=== PATIENT | female | born 2000 | race Hispanic/Latino ===

== ENCOUNTER 2020-08-09 08:18 | Observation (INO) | payer BC ==
[~2020-08-09] VITALS: Ht 154.9 cm; Wt 126.3 kg
[2020-08-09 09:16] LABS: CLARITY,URINE SL CLOUDY (CLEAR); COLOR,URINE YELLOW (YELLOW)
[2020-08-09 09:17] LABS: BILIRUBIN,URINE NEGATIVE (NEGATIVE); KETONES,URINE 1+ (NEGATIVE); LEUKOCYTE ESTERASE ,URINE NEGATIVE (NEGATIVE); NITRITE,URINE NEGATIVE (NEGATIVE); PROTEIN,URINE DIPSTICK NEGATIVE (NEGATIVE); URINE UROBILINOGEN 0.2 mg/dL (0.2 - 1)
[2020-08-09 09:18] LABS: BACTERIA,URINE RARE /HPF; EPITHELIAL CELLS,URINE FEW /LPF; PREGNANCY TEST, URINE NEGATIVE (NEGATIVE)
[2020-08-09] MEDS ORDERED: ACETAMINOPHEN 325 MG TAB PO ONE (09:45)
--- NOTE | 2020-08-09 09:52 | Emergency Department Note ---
History of Present Illnes History of Present Illness Chief Complaint: Abdominal Complaints History of Present Illness This is a 20 year old female . Chief Complaint Comment Pt reports suprapubic pain that started last night. Denies any dysuria. Pt states pain happens once a month. Pt states she usually gets fever and blood clots with pain every month then her cycle starts. Denies any blood clots this time. Reports chills. Historian: Patient Arrival Mode: Car Onset quality: gradual Timing of current episode: intermittent Progression: unchanged Chronicity: new Past Medical/Family History Physician Review I have reviewed the patient's past medical and family history. Any updates have been documented here. Past Medical History Recent Fever: No Clinical Suspicion of Infectio: No New/Unexplained Change in Ment: No Review of Systems Review of Systems Constitutional: Reports no symptoms EENTM: Reports no symptoms Cardiovascular: Reports no symptoms Respiratory: Reports no symptoms Gastrointestinal: Reports as per HPI, Reports abdominal pain Genitourinary: Reports no symptoms Musculoskeletal: Reports no symptoms Integumentary: Reports no symptoms Neurological: Reports no symptoms Psychological: Reports no symptoms Endocrine: Reports no symptoms Hematological/Lymphatic: Reports no symptoms Physical Exam Related Data Allergies: Coded Allergies: No Known Allergies (Unverified , 08/09/20) Triage Vital Signs Vital Signs Date Time Temp Pulse Resp B/P (MAP) Pulse Ox O2 Delivery O2 Flow Rate FiO2 08/09/20 08:35 102.7 123 18 116/78 100 Room Air Vital signs reviewed: Yes Physical Exam CONSTITUTIONAL Constitutional: Present well-developed, Present well-nourished HENT HENT: Present normocephalic, Present atraumatic, Present oropharynx clear/moist, Present nose normal HENT L/R: Present left ext ear normal, Present right ext ear normal EYES Eyes: Reports PERRL, Reports conjunctivae normal NECK Neck: Present ROM normal PULMONARY Pulmonary: Present effort normal, Present breath sounds normal CARDIOVASCULAR Cardiovascular: Present regular rhythm, Present heart sounds normal, Present capillary refill normal, Present normal rate GASTROINTESTINAL Abdominal: Present soft, Present nontender, Present bowel sounds normal GENITOURINARY Genitourinary: Present exam deferred, Present other (bilateral adnexal tenderness, refused pelvic) SKIN Skin: Present warm, Present dry MUSCULOSKELETAL Musculoskeletal: Present ROM normal NEUROLOGICAL Neurological: Present alert, Present oriented x 3, Present no gross motor or sensory deficits PSYCHOLOGICAL Psychological: Present mood/affect normal, Present judgement normal Results Laboratory Laboratory Laboratory Tests Test 08/09/20 08:41 Urine Color Yellow (YELLOW) Urine Clarity Sl cloudy (CLEAR) Urine pH 5.5 (5 - 7) Urine Specific Mcleod >=1.030 (1.010-1.025) Urine Protein Negative (NEGATIVE) Urine Glucose (UA) Negative (NEGATIVE) Urine Ketones 1+ (NEGATIVE) Urine Blood Small (NEGATIVE) Urine Nitrite Negative (NEGATIVE) Urine Bilirubin Negative (NEGATIVE) Urine Urobilinogen 0.2 mg/dL (0.2 - 1) Urine Leukocyte Esterase Negative (NEGATIVE) Urine RBC 6-10 /HPF (0-5) Urine WBC 6-10 /HPF (0-5) Urine Epithelial Cells Few /LPF (NONE) Urine Bacteria Rare /HPF (NONE) Urine Test Negative (NEGATIVE) Assessment & Plan Medical Decision Making MDM Differential diagnosis includes: pancreatitis, AAA, cholecystitis, choledocholithiasis, cholangitis, mesenteric ischemia, small bowel obstruction, diverticulitis, colitis, appendicitis, or pelvic etiology such as ovarian tors ion, TOA, or ectopic . Abdominal exam without peritoneal signs. No evidence of acute abdomen at this time. Well appearing. Low suspicion for acute hepatobiliary disease (includng acute cholecystitis), acute pancreatitis, PUD (including perforation), acute infectious processes (pneumonia, hepatitis, pyelonephritis), acute appendicitis, vascular catastrophe, bowel obstruction or viscus perforation. Presentation not consistent with other acute, emergent causes of abdominal pain at this time. Plan: labs, UA, pelvic ultrasound, pain control, serial reassessment Reassessment Reassessment Patients symptoms not typical for emergent causes of abdominal pain such as, but not limited to, appendicitis, abdominal aortic aneurysm, surgical biliary disease, pancreatitis, SBO, mesenteric ischemia, serious intra-abdominal bacterial illness. Presentation also not typical of gynecologic emergencies such as TOA, Ovarian Torsion, PID. Not Ectopic. Doubt atypical ACS. Pt tolerating PO. Disposition: Patient will be discharged with strict return precautions and follow up with primary MD within 12-24 hours for further evaluation. Patient understands that this still may have an early presentation of an emergent medical condition such as appendicitis that will require a recheck. Depart Disposition: HOME, SELF-CARE Last Vital Signs Date Time Temp Pulse Resp B/P (MAP) Pulse Ox O2 Delivery O2 Flow Rate FiO2 08/09/20 08:35 102.7 123 18 116/78 100 Room Air Medications in the ED Acetaminophen 975 mg ONCE ONCE PO Last administered on 08/09/20at 09:41; Admin Dose 975 MG; Start 08/09/20 at 09:45; Stop 08/09/20 at 09:46 LEONEL RICHARDSON DO Aug 09, 2020 09:52
[2020-08-09 10:33] LABS: BASOPHILS % 0.2 % (0.0-1.0); EOSINOPHILS # (AUTO) 0.1 (0.0-0.4); EOSINOPHILS % 0.3 % (0.0-6.0); HEMATOCRIT 37.9 % (34.2-44.1); HEMOGLOBIN 11.2 g/dL (12.0-16.0); LYMPHOCYTES # (AUTO) 1.2 (1.0-3.2); LYMPHOCYTES % 5.2 % (18.0-39.1); MEAN CORPUSCULAR HEMOGLOBIN 25.1 pg (28-32); MEAN CORPUSCULAR HGB CONC 29.6 g/dL (31-35); MONOCYTES # (AUTO) 0.6 (0.2-0.8); MONOCYTES % 2.7 % (4.4-11.3); NEUTROPHILS # (AUTO) 20.7 (2.1-6.9); PLATELET COUNT 455 x10e3/uL (140-360); RED BLOOD COUNT 4.46 x10e6/uL (3.6-5.1); RED CELL DISTRIBUTION WIDTH 13.5 % (11.7-14.4)
[2020-08-09 10:52] LABS: ALANINE AMINOTRANSFERASE 30 IU/L (0-55); ALBUMIN 3.5 g/dL (3.5-5.0); ALBUMIN/GLOBULIN RATIO 0.8 (0.8-2.0); ALKALINE PHOSPHATASE 84 IU/L (40-150); ANION GAP 15.1 mmol/L (8-16); BLOOD UREA NITROGEN 11 mg/dL (7-26); BUN/CREATININE RATIO 13 (6-25); CALCIUM 9.1 mg/dL (8.4-10.2); CARBON DIOXIDE 24 mmol/L (22-29); CHLORIDE 105 mmol/L (98-107); CREATININE, SERUM 0.82 mg/dL (0.57-1.11); EST GLOMERULAR FILTRATION RATE > 60 ML/MIN (60-); GLUCOSE 173 mg/dL (74-118); POTASSIUM 4.1 mmol/L (3.5-5.1); SODIUM 140 mmol/L (136-145)
--- NOTE | 2020-08-09 12:13 | Diagnostic Imaging Report ---
HISTORY : Pelvic pain COMPARISON : None TECHNIQUE: Ultrasound examination of the pelvis was performed transabdominally and transvaginally including spectral and color Doppler evaluation. FINDINGS: The uterus is retroverted and homogeneous in echotexture. The uterus measures 7.3 x 3.6 x 4.1 cm. The endometrial stripe appears unremarkable and measures 0.4 cm in maximum thickness. The right ovary measures 3.6 x 1.9 x 3.2 cm. The left ovary measures 3.2 x 3.2 x 2.4 cm. Arterial and venous flow identified at the time of this examination. Small and ability and cyst is noted. Bilateral ovarian follicles are visualized. There is a small amount of fluid in the cul-de-sac. IMPRESSION : 1. No evidence of ovarian torsion at the time of this examination. Bilateral ovarian follicles are visualized. 2. Unremarkable ultrasound of the uterus. 3. Small amount of free fluid in the pelvis, within physiologic limits. Signed by: Tanner Bass MD on 08/09/2020 12:10 PM
[2020-08-09] MEDS ORDERED: SODIUM CHLORIDE 0.9% 50ML 50 ML ONE (13:36)
[2020-08-09] MEDS ORDERED: IOPAMIDOL 370 MG/ML 200 ML INFUS..BTL INJ ONE (13:36)
--- NOTE | 2020-08-09 14:25 | Diagnostic Imaging Report ---
CT of the abdomen and pelvis with contrast TECHNIQUE: CT of the abdomen and pelvis WITH intravenous contrast and WITHOUT oral contrast. Dose modulation, iterative reconstruction, and/or weight-based adjustment of the mA/kV was utilized to reduce the radiation dose to as low as reasonably achievable. IV CONTRAST: 100 mL of Isovue-370 ORAL CONTRAST: None RADIATION DOSE: Total DLP: 857 mGy*cm COMPLICATIONS: None INDICATION: ^Y ^abd pain ^[id number] ^1340. COMPARISON: None. FINDINGS: LOWER THORAX: Linear atelectasis is noted. HEPATOBILIARY: Liver is diffusely hypoattenuating. No suspicious hepatic lesion. Hepatic and portal veins are patent. Gallbladder is unremarkable. No biliary ductal dilatation. SPLEEN: No splenomegaly. PANCREAS: No focal masses or ductal dilatation. ADRENALS: No adrenal nodules. KIDNEYS/URETERS: Symmetric cortical enhancement without hydronephrosis or perinephric fluid collection. Ureters are not dilated. PELVIC ORGANS/BLADDER: Urinary bladder is unremarkable. Uterus is unremarkable. There is stranding within the soft tissues anterior is a uterus and extending to the anterior left ovary. Mild peripheral enhancement within the free fluid dependently within the cul-de-sac posteriorly. No drainable collection is identified. PERITONEUM/RETROPERITONEUM: Negative for pneumoperitoneum. Free fluid is identified in the pelvis and adjacent to the left ovary. LYMPH NODES: No lymphadenopathy. VESSELS: Unremarkable. GI TRACT: Limited lack of oral contrast. Negative for obstruction or surrounding inflammatory change. Normal appendix is noted. BONES AND SOFT TISSUES: No acute osseous abnormality. Soft tissues are unremarkable. IMPRESSION: 1. Inflammatory stranding and free fluid extending from the left ovary into the anterior pelvis and complex fluid within the cul-de-sac with questionable mild enhancement. Findings could relate to infection/pelvic inflammatory disease with phlegmonous change. No drainable abscess or tubo-ovarian abscess is identified at this time. 2. Hepatic steatosis. Signed by: Tanner Bass MD on 08/09/2020 2:22 PM
[2020-08-09] MEDS: DOXYCYCLINE 100MG/NS 100ML 100 ML IV SCH (15:05)
[2020-08-09] MEDS: CEFOXITIN 2GM/ D5W 50ML 50 ML IV SCH (16:56)
[2020-08-09] MEDS ORDERED: ONDANSETRON HCL INJ 2MG/ML 2ML 2 MG/ML VIAL IV PRN (17:45)
[2020-08-09] MEDS ORDERED: MORPHINE SULFATE 2 MG/ML SYR 1ML IV PRN (17:45)
[2020-08-09] MEDS ORDERED: MORPHINE SULFATE INJ 4 MG/ML INJ 1ML IV PRN (17:45)
--- OUTSIDE RECORDS SUMMARY | 2020-08-09 19:47 | XMS REPORT | Continuity of Care Document ---
Author Author [facility] t Organization [facility] Address [address] [place] [address] Phone Unavailable Care Team Providers Care Liquor Clerk Name Role Phone Ari RICHARDSON Attphys Unavailable Payers Payer Name Policy Type Policy Number Effective Date Expiration Date S ource Problems This patient has no known problems. Allergies, Adverse Reactions, Alerts Allergy Name Allergy Type Status Severity Reaction(s) Onset Date Inacti ve Date Treating Clinician Comments Source No Known Contrast Allergies DA Active U 2008-06-07 00:00: 00 [facility] No Known Drug Allergies DA Active U 2008-06-07 00:00:00 [facility] No Known Food Allergies DA Active U 2008-06-07 00:00:00 [facility] No Known Other Allergies DA Active U 2008-06-07 00:00:00 [facility] Medications This patient has no known medications. Procedures This patient has no known procedures. Results Test Description Test Time Test Comments Results Result Comments Source CT ABDOMEN/PELVIS W 2020-08-09 14:12:00 [facility] : 2000 Sex: F [facility] [address] [address] Patient Name: MAY NORWOOD MR #: [id number] : 2000 Age/Sex: 20/F Req #: [id number] Adm Physician: Ordered by: LEONEL RICHARDSON DO Report #: [id number] Location: ER Room/Bed: Procedure: [id number] CT/CT ABDOMEN/PELVIS W Exam Date: 08/09/20 Exam Time: 1340 REPORT STATUS: Signed CT of the abdomen and pelvis with con trast TECHNIQUE: CT of the abdomen and pelvis WITH intravenous contrast and WITHOUT oral contrast. Dose modulation, iterative reconstruction, and/or weight-based adjustment of the mA/kV was utilized to reduce the radiation dose to as low as reasonably achievable. IV CONTRAST: 100 mL of Isovue-370 ORAL CONTRAST: None RADIATION DOSE: Total DLP: 857 mGy*cm COMPLICATIONS: None INDICATION: Y abd pain [id number] 1340. COMPARISON: None. FINDINGS: LOWER THORAX: Linear atelectasis is noted. HEPATOBILIARY: Liver is diffusely hypoattenuating. No suspicious hepatic lesion. Hepatic and portal veins are patent. Gallbladder is unremarkable. No biliary ductal dilatation. SPLEEN: No splenomegaly. PANCREAS: No focal masses or ductal dilatation. ADRENALS: No adrenal nodules. KIDNEYS/URETERS: Symmetric cortical enhancement without hydronephrosis or perinephric fluid collection. Ureters are not dilate d. PELVIC ORGANS/BLADDER: Urinary bladder is unremarkable. Uterus is unremarkable. There is stranding within the soft tissues anterior is a uterus and extending to the anterior left ovary. Mild peripheral enhancement within the free fluid dependently within the cul-de-sac posteriorly. No drainable collection is identified. PERITONEUM/RETROPERITONEUM: Negative for pneumoperitoneum. Free fluid is identified in the pelvis and adjacent to the left ovary. LYMPH NODES: No lymphadenopathy. VESSELS: Unremarkable. GI TRACT: Limited lack of oral contrast. Negative for obstruction or surrounding inflammatory change. Normal appendix is noted. BONES AND SOFT TISSUES: No acute osseous abnormality. Soft tissues are unremarkable. IMPRESSION: 1. Inflammatory stranding and free fluid extending from the left ovary into the anterior pelvis and complex fluid within the cul-de-sac with questionable mild enhancement. Findings could relate to infection/pelvic inflammatory disease with phlegmonous change. No drainable abscess or tubo-ovarian abscess is identified at this time. 2. Hepatic steatosis. Signed by: Toi Bass MD on 08/09/2020 2:22 PM Dictated By: TOI BASS MD 21 Transcribed By: ALEJA on 08/09/201421 COPY TO: LEONEL RICHARDSON DO TRANSVAGINAL 2020-08-09 12:06:00 [facility] 2000 Sex: [place] [address] [address] Patient Name: MAY NORWOOD MR #: [id number] : 2000 Age/Sex: 20/F Req #: [id number] Adm Physician: Ordered by: LEONEL RICHARDSON DO Report #: [id number] Location: ER Room/Bed: Procedure: [id number] US/US TRANSVAGINAL Exam Date: 08/09/20 Exam Time: 951 REPORT STATUS: Signed HISTORY : Pelvic pain COMPARISON : None TECHNIQUE: Ultrasound examination of the pelvis was performed transabdominally and transvaginally including spectral and color Doppler evaluation. FINDINGS: The uterus is retroverted and homogeneous in echotexture. The uterus measures 7.3 x 3.6 x 4.1 cm. The endometrial stripe appears unremarkable and measures 0.4 cm in maximum thickness. The right ovary measures 3.6 x 1.9 x 3.2 cm. The left ovary measures 3.2 x 3.2 x 2.4 cm. Arterial and venous flow identified at the time of this examination. Small and ability and cyst is noted. Bilateral ovarian follicles are visualized. There is a small amount of fluid in the cul-de-sac. IMPRESSION : 1. No evidence of ovarian torsion at the time of this examination. Bilateral ovarian follicles are visualized. 2. Unremarkable ultrasound of the uterus. 3. Small amount of free fluid in the pelvis, within physiologic limits. Signed by: Toi Bass MD on 08/09/2020 12:10 PM Dictated By: TOI BASS MD [id number] Transcribed By: ALEJA on 08/09/20 1255 COPY TO: LEONEL RICHARDSON DO PELVIC DOPPLER LTD 2020-08-09 12:06:00 [facility] : 2000 Sex: F [facility] [address] [address] Patient Name: MAY NORWOOD MR #: [id number] : 2000 Age/Sex: 20/F Req #: [id number] [facility] Physician: Ordered by: LEONEL RICHARDSON DO Report #: [id number] Location: ER Room/Bed: Procedure: [id number] US/US PELVIC DOPPLER LTD Exam Date: 08/09/20 Exam Time: 951 REPORT STATUS: Signed HISTORY : Pelvic pain COMPARISON : None TECHNIQUE: Ultrasound examination of the pelvis was performed transabdominally and transvaginally including spectral and color Doppler evaluation. FINDINGS: The uterus is retroverted and homogeneous in echotexture. The uterus measures 7.3 x 3.6 x 4.1 cm. The endometrial stripe appears unremarkable and measures 0.4 cm in maximum thickness. The right ovary measures 3.6 x 1.9 x 3.2 cm. The left ovary measures 3.2 x 3.2 x 2.4 cm. Arterial and venous flow identified at the time of this examination. Small and ability and cyst is noted. Bilateral ovarian follicles are visualized. There is a small amount of fluid in the cul-de-sac. IMPRESSION : 1. No evidence of ovarian torsion at the time of this examination. Bilateral ovarian follicles are visualized. 2. Unremarkable ultrasound of the uterus. 3. Small amount of free fluid in the pelvis, within physiologic limits. Signed by: Toi Bass MD on 08/09/2020 12:10 PM Dictated By: TOI BASS MD [id number] Transcribed By: ALEJA on 08/09/20 3290 COPY TO: LEONEL RICHARDSON DO US PELVIS COMPLETE NON OB 2020-08-09 12:06:00 [facility] 2000 Sex: [place] [address] [place] [address] Patient Name: MAY NORWOOD MR #: [id number] : 2000 Age/Sex: 20/F Req #: [id number] [facility] Physician: Ordered by: LEONEL RICHARDSON DO Report #: [id number] Location: ER Room/Bed: Procedure: [id number] US/US PELVIS COMPLETE NON OB Exam Date: 08/09/20 Exam Time: 951 REPORT STATUS: Signed HISTORY : Pelvic pain COM PARISON : None TECHNIQUE: Ultrasound examination of the pelvis was performed transabdominally and transvaginally including spectral and color Doppler evaluation. FINDINGS: The uterus is retroverted and homogeneous in echotexture. The uterus measures 7.3 x 3.6 x 4.1 cm. The endometrial stripe appears unremarkable and measures 0.4 cm in maximum thickness. The right ovary measures 3.6 x 1.9 x 3.2 cm. The left ovary measures 3.2 x 3.2 x 2.4 cm. Arterial and venous flow identified at the time of this examination. Small and ability and cyst is noted. Bilateral ovarian follicles are visualized. There is a small amount of fluid in the cul-de-sac. IMPRESSION : 1. No evidence of ovarian torsion at the time of this examination. Bilateral ovarian follicles are visualized. 2. Unremarkable ultrasound of the uterus. 3. Small amount of free fluid in the pelvis, within physiologic limits. Signed by: Toi Bass MD on 08/09/2020 12:10 PM Dictated By: TOI BASS MD 1352 Transcribed By: ALEJA on 08/09/20 1359 COPY TO: LEONEL RICHARDSON, POC Glucose 2019-12-16 14:35:59 Test Item Glucose POC (test code = Glucose POC) 89 mg/dL 70-115 If you consider your patient critically ill, the Russell-Accu Check Infrom II meter should not be used for Glucose determination. Draw a venous Glucose and send to the main Lab for analysis. Complete Blood Count with [id number] 06:26:26* Test Item Value Reference Range Interpretation Comments WBC (test code = WBC) 14.9 x10 4.4-10.5 H RBC (test code = RBC) 3.05 x10 3.75-5.20 L Hgb (test code = Hgb) 8.8 g/dL 12.2-14.8 L Delta check investigated values correlate with patients condition, post partumResults called to and read back by: AMY Russell 12/15/2019 06:26:19 CDT CE Hct (test code = Hct) 27.9 % 36.5-44.4 L MCV (test code = MCV) 91.50 fL 80.00-100.00 MCHC (test code = MCHC) 31.50 g/dL 32.00-37.50 L RDW CV (test code = RDW CV) 14.0 % 11.5-14.5 MCH (test code = MCH) 28.9 pg 27.0-32.5 Platelets (test code = Platelets) 239.0 x10 140.0-440.0 MPV (test code = MPV) 12.3 fL N Slide Review (test code = Slide Review) Auto Auto Result created by GL_SJM_SLIDE_REV_AUTO nRBC (test code = nRBC) 0 N NRBC Abs (test code = NRBC Abs) 0.00 x10 N IPF (test code = IPF) 0 % N Automated [id number] 06:26:26* Test Item Value Reference Range Interpretation Comments Neutro Auto (test code = Neutro Auto) 77.1 % 36.0-70.0 H Lymph Auto (test code = Lymph Auto) 16.0 % 12.0-44.0 [place] Auto (test code = [place] Auto) 6.3 % 0.0-11.0 Eos, Auto (test code = Eos, Auto) 0.1 % 0.0-7.0 Basophil Auto (test code = Basophil Auto) 0.1 % 0.0-2.0 Neutro Absolute (test code = Neutro Absolute) 11.5 x10 1.6-7.4 H Lymph Absolute (test code = Lymph Absolute) 2.38 x10 .50-4.60 [place] Absolute (test code = [place] Absolute) .94 x10 .00-1.20 Eos Absolute (test code = Eos Absolute) 0.01 x10 0.00-0.74 Baso Absolute (test code = Baso Absolute) 0.01 x10 0.00-0.21 IG [id number] 06:26:26* Test Item Value Reference Range Interpretation Comments IG (test code = IG) 0.4 % 0.0-5.0 IG Abs (test code = IG Abs) 0 x10 N POC Cord BG [id number] 17:25:40* Test Item Value Reference Range Interpretation Comments pH CordA (test code = pH CordA) 7.30 7.32-7.43 L pH Temp Tigre CordA (test code = pH Temp Tigre CordA) 7.30 N pCO2 CordA (test code = pCO2 CordA) 50 mmHg 27-40 H pCO2 Temp Tigre CordA (test code = pCO2 Temp Tigre CordA) 50 mmHg N pO2 Temp Tigre CordA (test code = pO2 Temp Tigre CordA) 12.2 mmHg N ctHb CordA (test code = ctHb CordA) 18.7 g/dL 15.0-22.0 HCO3 CordA (test code = HCO3 CordA) 24.3 mmol/L N Hct CordA (test code = Hct CordA) 57 % 40-70 FiO2 CordA (test code = FiO2 CordA) 21 % N BE CordA (test code = BE CordA) -3.1 N Draw Site (test code = Draw Site) Umbilical N POC [id number] 15:30:19* Test Item Value Reference Range Interpretation Comments Glucose POC (test code = Glucose POC) 103 mg/dL 70-115 If you consider your patient critically ill, the Russell-Accu Check Infrom II meter should not be used for Glucose determination. Draw a venous Glucose and send to the main Lab for analysis. POC [id number] 13:45:20* Test Item Value Reference Range Interpretation Comments Glucose POC (test code = Glucose POC) 101 mg/dL 70-115 If you consider your patient critically ill, the Russell-Accu Check Infrom II meter should not be used for Glucose determination. Draw a venous Glucose and send to the main Lab for analysis. POC Urfrdsh1852-05-08 11:32:20* Test Item Value Reference Range Interpretation Comments Glucose POC (test code = Glucose POC) 111 mg/dL 70-115 If you consider your patient critically ill, the Russell-Accu Check Infrom II meter should not be used for Glucose determination. Draw a venous Glucose and send to the main Lab for analysis. POC [id number] 09:28:50* Test Item Value Reference Range Interpretation Comments Glucose POC (test code = Glucose POC) 118 mg/dL 70-115 H If you consider your patient critically ill, the Russell-Accu Check Infrom II meter should not be used for Glucose determination. Draw a venous Glucose and send to the main Lab for analysis. POC Imfqpvh0091-03-03 07:39:53* Test Item Value Reference Range Interpretation Comments Glucose POC (test code = Glucose POC) 113 mg/dL 70-115 If you consider your patient critically ill, the Russell-Accu Check Infrom II meter should not be used for Glucose determination. Draw a venous Glucose and send to the main Lab for analysis. Blood Urea [id number] 06:28:33* Test Item Value Reference Range Interpretation Comments BUN (test code = BUN) 8.10 mg/dL 6.00-20.00 Lactate [id number] 06:28:19* Test Item Value Reference Range Interpretation Comments LDH (test code = LDH) 192 U/L 135-214 [id number] 06:28:10* Test Item Value Reference Range Interpretation Comments Creatinine Level (test code = Creatinine Level) 0.60 mg/dL 0.50-0 .90 [id number] 06:28:10* Test Item Value Reference Range Interpretation Comments Creatinine Level (test code = Creatinine Level) 0.60 mg/dL 0.50-0 .90 eGFR AA (test code = eGFR AA) >60 mL/min/1.73 m2 N eGFR (estimated Glomerular Filtration Rate) is an estimated value, calculated from the patient's serum creatinine using the MDRD equation. It is NOT the patient's actual GFR. The eGFR provides a more clinically useful measure of kidney disease than serum creatinine alone.This calculation takes sex and race into account, if the information is provided. If the race is not provided, and the patient is -[place], multiply by 1.212. If sex is not provided, and the patient is female, multiply by 0.742. Results for patients <18 years of age have not been validated by the MDRD study and should be interpreted with caution. eGFR Result Interpretation:eGFR > or = 60 is in the Normal RangeeGFR < 60 may mean kidney diseaseeGFR < 15 may mean kidney failure Ranges recommended by the National Kidney Foundation, http://nkdep.nih.gov Artnrynaen5212-86-14 06:28:10* Test Item Value Reference Range Interpretation Comments Creatinine Level (test code = Creatinine Level) 0.60 mg/dL 0.50-0 .90 eGFR AA (test code = eGFR AA) >60 mL/min/1.73 m2 N eGFR (estimated Glomerular Filtration Rate) is an estimated value, calculated from the patient's serum creatinine using the MDRD equation. It is NOT the patient's actual GFR. The eGFR provides a more clinically useful measure of kidney disease than serum creatinine alone.This calculation takes sex and race into account, if the information is provided. If the race is not provided, and the patient is -[place], multiply by 1.212. If sex is not provided, and the patient is female, multiply by 0.742. Results for patients <18 years of age have not been validated by the MDRD study and should be interpreted with caution. eGFR Result Interpretation:eGFR > or = 60 is in the Normal RangeeGFR < 60 may mean kidney diseaseeGFR < 15 may mean kidney failure Ranges recommended by the National Kidney Foundation, http://nkdep.nih.gov eGFR Non-AA (test code = eGFR Non-AA) >60.00 mL/min/1.73 m2 N eGFR (estimated Glomerular Filtration Rate) is an estimated value, calculated from the patient's serum creatinine using the MDRD equation. It is NOT the patient's actual GFR. The eGFR provides a more clinically useful measure of kidney disease than serum creatinine alone.This calculation takes sex and race into account, if the information is provided. If the race is not provided, and the patient is -[place], multiply by 1.212. If sex is not provided, and the patient is female, multiply by 0.742. Results for patients <18 years of age have not been validated by the MDRD study and should be interpreted with caution. eGFR Result Interpretation:eGFR > or = 60 is in the Normal RangeeGFR < 60 may mean kidney diseaseeGFR < 15 may mean kidney failure Ranges recommended by the National Kidney Foundation, http://nkdep.nih.gov Aspartate [id number] 06:27:59* Test Item Value Reference Range Interpretation Comments AST (test code = AST) 16 U/L 1-32 Alanine [id number] 06:27:45* Test Item Value Reference Range Interpretation Comments ALT (test code = ALT) 14 U/L 1-33 Hepatitis B Surface [id number] 06:10:02* Test Item Value Reference Range Interpretation Comments Hep Bs Ag (test code = Hep Bs Ag) Nonreactive Non Reactive Automated [id number] 05:45:27* Test Item Value Reference Range Interpretation Comments Neutro Auto (test code = Neutro Auto) 80.6 % 36.0-70.0 H Lymph Auto (test code = Lymph Auto) 14.0 % 12.0-44.0 [place] Auto (test code = [place] Auto) 4.5 % 0.0-11.0 Eos, Auto (test code = Eos, Auto) 0.4 % 0.0-7.0 Basophil Auto (test code = Basophil Auto) 0.1 % 0.0-2.0 Neutro Absolute (test code = Neutro Absolute) 11.0 x10 1.6-7.4 H Lymph Absolute (test code = Lymph Absolute) 1.92 x10 .50-4.60 [place] Absolute (test code = [place] Absolute) .61 x10 .00-1.20 Eos Absolute (test code = Eos Absolute) 0.05 x10 0.00-0.74 Baso Absolute (test code = Baso Absolute) 0.02 x10 0.00-0.21 IG [id number] 05:45:27* Test Item Value Reference Range Interpretation Comments IG (test code = IG) 0.4 % 0.0-5.0 IG Abs (test code = IG Abs) 0 x10 N Complete Blood Count with [id number] 05:45:26* Test Item Value Reference Range Interpretation Comments WBC (test code = WBC) 13.7 x10 4.4-10.5 H RBC (test code = RBC) 3.98 x10 3.75-5.20 Hgb (test code = Hgb) 11.5 g/dL 12.2-14.8 L Hct (test code = Hct) 35.6 % 36.5-44.4 L MCV (test code = MCV) 89.40 fL 80.00-100.00 MCHC (test code = MCHC) 32.30 g/dL 32.00-37.50 MCH (test code = MCH) 28.9 pg 27.0-32.5 RDW CV (test code = RDW CV) 13.7 % 11.5-14.5 Platelets (test code = Platelets) 283.0 x10 140.0-440.0 MPV (test code = MPV) 12.5 fL N Slide Review (test code = Slide Review) Auto Auto Result created by GL_SJM_SLIDE_REV_AUTO nRBC (test code = nRBC) 0 N NRBC Abs (test code = NRBC Abs) 0.00 x10 N IPF (test code = IPF) 0 % N POC [id number] 19:40:16* Test Item Value Reference Range Interpretation Comments Glucose POC (test code = Glucose POC) 83 mg/dL 70-115 If you consider your patient critically ill, the Russell-Accu Check Infrom II meter should not be used for Glucose determination. Draw a venous Glucose and send to the main Lab for analysis. POC [id number] 14:48:50* Test Item Value Reference Range Interpretation Comments Glucose POC (test code = Glucose POC) 86 mg/dL 70-115 If you consider your patient critically ill, the Russell-Accu Check Infrom II meter should not be used for Glucose determination. Draw a venous Glucose and send to the main Lab for analysis. POC [id number] 10:49:18* Test Item Value Reference Range Interpretation Comments Glucose POC (test code = Glucose POC) 113 mg/dL 70-115 If you consider your patient critically ill, the Russell-Accu Check Infrom II meter should not be used for Glucose determination. Draw a venous Glucose and send to the main Lab for analysis. POC Olmzryg6042-05-26 05:36:43* Test Item Value Reference Range Interpretation Comments Glucose POC (test code = Glucose POC) 86 mg/dL 70-115 If you consider your patient critically ill, the Russell-Accu Check Infrom II meter should not be used for Glucose determination. Draw a venous Glucose and send to the main Lab for analysis. ABORh [id number] 02:09:01* Test Item Value Reference Range Interpretation Comments Methodology (test code = Methodology) Test-Tube(TT) Anti-A (test code = Anti-A) 0 Anti-B (test code = Anti-B) 4+ Anti-AB (test code = Anti-AB) NT Anti-D (test code = Anti-D) 4+ ABORh Retype (test code = ABORh Retype) B POS RPR [id number] 20:40:01* Test Item Value Reference Range Interpretation Comments RPR Qual (test code = RPR Qual) Non-Reactive Non-Reactive Reactive Control (test code = Reactive Control) Reactive Weak Reactive Control (test code = Weak Reactive Control) Weak Reac tive Non-Reactive Control (test code = Non-Reactive Control) Non-Reactiv e Lot # (test code = Lot #) [id number] N Expiration Dt (test code = Expiration Dt) 12.31.20 N POC [id number] 19:17:15* Test Item Value Reference Range Interpretation Comments Glucose POC (test code = Glucose POC) 113 mg/dL 70-115 If you consider your patient critically ill, the Russell-Accu Check Infrom II meter should not be used for Glucose determination. Draw a venous Glucose and send to the main Lab for analysis. 3C ABSC [id number] 18:30:21* Test Item Value Reference Range Interpretation Comments SC1 IS (test code = SC1 IS) NT SC2 IS (test code = SC2 IS) NT SC3 IS (test code = SC3 IS) NT SC1 37 (test code = SC1 37) 0 SC2 37 (test code = SC2 37) 0 SC3 37 (test code = SC3 37) 0 SC1 AHG (test code = SC1 AHG) 0 SC2 AHG (test code = SC2 AHG) 0 SC3 AHG (test code = SC3 AHG) 0 SC1 CC (test code = SC1 CC) 2+ SC2 CC (test code = SC2 CC) 2+ SC3 CC (test code = SC3 CC) 2+ Antibody Screen (3C) (test code = Antibody Screen (3C)) Negative AB SC Hepatitis B Surface [id number] 18:12:43* Test Item Value Reference Range Interpretation Comments Hep Bs Ag (test code = Hep Bs Ag) Nonreactive Non Reactive [id number] 18:10:38* Test Item Value Reference Range Interpretation Comments Previous History (test code = Previous History) No Prev History BBID (test code = BBID) [id number] Methodology (test code = Methodology) Test-Tube(TT) Anti-A (test code = Anti-A) 0 Anti-B (test code = Anti-B) 4+ Anti-D (test code = Anti-D) 4+ DCon (test code = DCon) NT A1 (test code = A1) 4+ B cells (test code = B cells) 0 ABORh (test code = ABORh) B POS Comprehensive Metabolic [id number] 17:54:42* Test Item Value Reference Range Interpretation Comments Sodium Level (test code = Sodium Level) 137.0 mmol/L 135.0-145.0 Potassium Level (test code = Potassium Level) 4.3 mmol/L 3.5-5.1 Chloride Level (test code = Chloride Level) 102 mmol/L 98-105 CO2 (test code = CO2) 18 mmol/L 22-29 L Anion Gap (test code = Anion Gap) 17 mmol/L 7-16 H BUN (test code = BUN) 8.50 mg/dL 6.00-20.00 Creatinine Level (test code = Creatinine Level) 0.50 mg/dL 0.50-0 .90 BUN/Creat Ratio (test code = BUN/Creat Ratio) 17 N Glucose Level (test code = Glucose Level) 76 mg/dL 70-115 Calcium Level (test code = Calcium Level) 8.8 mg/dL 8.3-10.5 Alk Phos (test code = Alk Phos) 86 U/L 35-104 Bilirubin Total (test code = Bilirubin Total) 0.2 mg/dL 0.1-0.9 Albumin Level (test code = Albumin Level) 3.0 g/dL 3.5-5.2 L Protein Total (test code = Protein Total) 6.0 g/dL 6.4-8.3 L ALT (test code = ALT) 13 U/L 1-33 AST (test code = AST) 16 U/L 1-32 Globulin (test code = Globulin) 3.0 g/dL 2.9-3.1 A/G Ratio (test code = A/G Ratio) 1.0 ratio N Comprehensive Metabolic [id number] 17:54:42* Test Item Value Reference Range Interpretation Comments Sodium Level (test code = Sodium Level) 137.0 mmol/L 135.0-145.0 Potassium Level (test code = Potassium Level) 4.3 mmol/L 3.5-5.1 Chloride Level (test code = Chloride Level) 102 mmol/L 98-105 CO2 (test code = CO2) 18 mmol/L 22-29 L Anion Gap (test code = Anion Gap) 17 mmol/L 7-16 H BUN (test code = BUN) 8.50 mg/dL 6.00-20.00 Creatinine Level (test code = Creatinine Level) 0.50 mg/dL 0.50-0 .90 BUN/Creat Ratio (test code = BUN/Creat Ratio) 17 N Glucose Level (test code = Glucose Level) 76 mg/dL 70-115 Calcium Level (test code = Calcium Level) 8.8 mg/dL 8.3-10.5 Alk Phos (test code = Alk Phos) 86 U/L 35-104 Bilirubin Total (test code = Bilirubin Total) 0.2 mg/dL 0.1-0.9 Albumin Level (test code = Albumin Level) 3.0 g/dL 3.5-5.2 L Protein Total (test code = Protein Total) 6.0 g/dL 6.4-8.3 L ALT (test code = ALT) 13 U/L 1-33 AST (test code = AST) 16 U/L 1-32 Globulin (test code = Globulin) 3.0 g/dL 2.9-3.1 A/G Ratio (test code = A/G Ratio) 1.0 ratio N eGFR AA (test code = eGFR AA) >60 mL/min/1.73 m2 N eGFR (estimated Glomerular Filtration Rate) is an estimated value, calculated from the patient's serum creatinine using the MDRD equation. It is NOT the patient's actual GFR. The eGFR provides a more clinically useful measure of kidney disease than serum creatinine alone.This calculation takes sex and race into account, if the information is provided. If the race is not provided, and the patient is -[place], multiply by 1.212. If sex is not provided, and the patient is female, multiply by 0.742. Results for patients <18 years of age have not been validated by the MDRD study and should be interpreted with caution. eGFR Result Interpretation:eGFR > or = 60 is in the Normal RangeeGFR < 60 may mean kidney diseaseeGFR < 15 may mean kidney failure Ranges recommended by the National Kidney Foundation, http://nkdep.nih.gov eGFR Non-AA (test code = eGFR Non-AA) >60.00 mL/min/1.73 m2 N eGFR (estimated Glomerular Filtration Rate) is an estimated value, calculated from the patient's serum creatinine using the MDRD equation. It is NOT the patient's actual GFR. The eGFR provides a more clinically useful measure of kidney disease than serum creatinine alone.This calculation takes sex and race into account, if the information is provided. If the race is not provided, and the patient is -[place], multiply by 1.212. If sex is not provided, and the patient is female, multiply by 0.742. Results for patients <18 years of age have not been validated by the MDRD study and should be interpreted with caution. eGFR Result Interpretation:eGFR > or = 60 is in the Normal RangeeGFR < 60 may mean kidney diseaseeGFR < 15 may mean kidney failure Ranges recommended by the National Kidney Foundation, http://nkdep.nih.gov Comprehensive Metabolic [id number] 17:54:42* Test Item Value Reference Range Interpretation Comments Sodium Level (test code = Sodium Level) 137.0 mmol/L 135.0-145.0 Potassium Level (test code = Potassium Level) 4.3 mmol/L 3.5-5.1 Chloride Level (test code = Chloride Level) 102 mmol/L 98-105 CO2 (test code = CO2) 18 mmol/L 22-29 L Anion Gap (test code = Anion Gap) 17 mmol/L 7-16 H BUN (test code = BUN) 8.50 mg/dL 6.00-20.00 Creatinine Level (test code = Creatinine Level) 0.50 mg/dL 0.50-0 .90 BUN/Creat Ratio (test code = BUN/Creat Ratio) 17 N Glucose Level (test code = Glucose Level) 76 mg/dL 70-115 Calcium Level (test code = Calcium Level) 8.8 mg/dL 8.3-10.5 Alk Phos (test code = Alk Phos) 86 U/L 35-104 Bilirubin Total (test code = Bilirubin Total) 0.2 mg/dL 0.1-0.9 Albumin Level (test code = Albumin Level) 3.0 g/dL 3.5-5.2 L Protein Total (test code = Protein Total) 6.0 g/dL 6.4-8.3 L ALT (test code = ALT) 13 U/L 1-33 AST (test code = AST) 16 U/L 1-32 Globulin (test code = Globulin) 3.0 g/dL 2.9-3.1 A/G Ratio (test code = A/G Ratio) 1.0 ratio N eGFR AA (test code = eGFR AA) >60 mL/min/1.73 m2 N eGFR (estimated Glomerular Filtration Rate) is an estimated value, calculated from the patient's serum creatinine using the MDRD equation. It is NOT the patient's actual GFR. The eGFR provides a more clinically useful measure of kidney disease than serum creatinine alone.This calculation takes sex and race into account, if the information is provided. If the race is not provided, and the patient is -[place], multiply by 1.212. If sex is not provided, and the patient is female, multiply by 0.742. Results for patients <18 years of age have not been validated by the MDRD study and should be interpreted with caution. eGFR Result Interpretation:eGFR > or = 60 is in the Normal RangeeGFR < 60 may mean kidney diseaseeGFR < 15 may mean kidney failure Ranges recommended by the National Kidney Foundation, http://nkdep.nih.gov eGFR Non-AA (test code = eGFR Non-AA) >60.00 mL/min/1.73 m2 N eGFR (estimated Glomerular Filtration Rate) is an estimated value, calculated from the patient's serum creatinine using the MDRD equation. It is NOT the patient's actual GFR. The eGFR provides a more clinically useful measure of kidney disease than serum creatinine alone.This calculation takes sex and race into account, if the information is provided. If the race is not provided, and the patient is -[place], multiply by 1.212. If sex is not provided, and the patient is female, multiply by 0.742. Results for patients <18 years of age have not been validated by the MDRD study and should be interpreted with caution. eGFR Result Interpretation:eGFR > or = 60 is in the Normal RangeeGFR < 60 may mean kidney diseaseeGFR < 15 may mean kidney failure Ranges recommended by the National Kidney Foundation, http://nkdep.nih.gov Automated [id number] 17:46:17* Test Item Value Reference Range Interpretation Comments Neutro Auto (test code = Neutro Auto) 78.2 % 36.0-70.0 H Lymph Auto (test code = Lymph Auto) 16.3 % 12.0-44.0 [place] Auto (test code = [place] Auto) 4.3 % 0.0-11.0 Eos, Auto (test code = Eos, Auto) 0.7 % 0.0-7.0 Basophil Auto (test code = Basophil Auto) 0.1 % 0.0-2.0 Neutro Absolute (test code = Neutro Absolute) 8.8 x10 1.6-7.4 H Lymph Absolute (test code = Lymph Absolute) 1.83 x10 .50-4.60 [place] Absolute (test code = [place] Absolute) .48 x10 .00-1.20 Eos Absolute (test code = Eos Absolute) 0.08 x10 0.00-0.74 Baso Absolute (test code = Baso Absolute) 0.01 x10 0.00-0.21 IG [id number] 17:46:17* Test Item Value Reference Range Interpretation Comments IG (test code = IG) 0.4 % 0.0-5.0 IG Abs (test code = IG Abs) 0 x10 N Complete Blood Count with [id number] 17:46:16* Test Item Value Reference Range Interpretation Comments WBC (test code = WBC) 11.2 x10 4.4-10.5 H RBC (test code = RBC) 3.75 x10 3.75-5.20 Hgb (test code = Hgb) 10.9 g/dL 12.2-14.8 L MCV (test code = MCV) 90.90 fL 80.00-100.00 Hct (test code = Hct) 34.1 % 36.5-44.4 L MCHC (test code = MCHC) 32.00 g/dL 32.00-37.50 RDW CV (test code = RDW CV) 13.8 % 11.5-14.5 MCH (test code = MCH) 29.1 pg 27.0-32.5 Platelets (test code = Platelets) 284.0 x10 140.0-440.0 MPV (test code = MPV) 13.0 fL N Slide Review (test code = Slide Review) Auto Auto Result created by [email or web address] nRBC (test code = nRBC) 0 N NRBC Abs (test code = NRBC Abs) 0.00 x10 N IPF (test code = IPF) 0 % N T4 [id number] 00:31:00* Test Item Value Reference Range Interpretation Comments T4 FREE (test code = T4F) 1.20 ng/dL 0.76-1.46 N T4 (THYROXINE)2018-12-01 00:31:00* Test Item Value Reference Range Interpretation Comments T4 (THYROXINE) (test code = T4) 13.7 ug/dL 4.5-13.9 N THYROID STIMULATING [id number] 00:31:00* Test Item Value Reference Range Interpretation Comments THYROID STIMULATING HORMONE (test code = TSH) 2.400 uIU/mL 0.36-3.7 4 N TSH REFERENCE RANGES: EUTHYROID: 0.35 - 4.3 mIU/mL HYPO : > 5.5 mIU/mL HYPER : < 0.35 mIU/mL [id number] 00:31:00* Test Item Value Reference Range Interpretation Comments GLYCOSYLATED HEMOGLOBIN (HA1C) (test code = GLYHGB) 5.8 % HbA1 4. 8-6.0 N ESTIMATED AVERAGE GLUCOSE (test code = EAG) 120 MG/DL
[2020-08-10] VITALS (7 sets, daily range): BP systolic 101–116; BP diastolic 43–59
[2020-08-10] MEDS ORDERED: SODIUM CHLORIDE 0.9% 250ML 0 ML ONE (03:12)
[2020-08-10] MEDS ORDERED: CEFOXITIN SOD 1 GM VIAL ONE (03:22)
[2020-08-10] MEDS ORDERED: SODIUM CHLORIDE 0.9% 50ML 50 ML ONE (03:23)
[2020-08-10] MEDS: CEFOXITIN 2GM/ D5W 50ML 50 ML IV SCH ×4 (03:30→18:15)
[2020-08-10] MEDS: DOXYCYCLINE 100MG/NS 100ML 100 ML IV SCH ×2 (04:00→15:22)
--- NOTE | 2020-08-10 07:38 | NUR ---
H&P 20yo s/p 8mos ago presents with cyclical pelvic pain, passage of blood clots during menses, and fever. Denies vaginal discharge, odor or itching. Denies urinary symptoms. Pt found to be febrile 102-103F in ED, WBC 22,000, normal pelvic sono but CT scan concerning for pelvic infection. Per pt had uncomplicated but was GBS+. Went to OB for pain 1mo ago but did not follow up. Presented to ED with worsening pain. VS febrile, otherwise stable PE suprapubic tenderness, no vaginal discharge or odor, no CMT, uterine tenderness A/P 20yo s/p 8mos ago with likely ongoing endometritis evolving into PID -IV abx --> cefoxitin, doxy, flagyl -tylenol prn for pain, zofran prn for nausea -regular diet -regular activity -c/w IV abx until 24hrs afebrile, will switch to PO, if tolerates can discharge in HD#2-3
[2020-08-10 07:59] LABS: BASOPHILS % 0.2 % (0.0-1.0); EOSINOPHILS # (AUTO) 0.3 (0.0-0.4); EOSINOPHILS % 2.1 % (0.0-6.0); HEMATOCRIT 34.5 % (34.2-44.1); HEMOGLOBIN 10.1 g/dL (12.0-16.0); LYMPHOCYTES # (AUTO) 3.3 (1.0-3.2); LYMPHOCYTES % 24.1 % (18.0-39.1); MEAN CORPUSCULAR HGB CONC 29.3 g/dL (31-35); MEAN CORPUSCULAR VOLUME 85.4 fL (81-99); MONOCYTES # (AUTO) 0.9 (0.2-0.8); MONOCYTES % 6.5 % (4.4-11.3); NEUTROPHILS # (AUTO) 9.1 (2.1-6.9); NEUTROPHILS % 66.7 % (38.7-80.0); PLATELET COUNT 306 x10e3/uL (140-360); RED BLOOD COUNT 4.04 x10e6/uL (3.6-5.1); RED CELL DISTRIBUTION WIDTH 13.8 % (11.7-14.4)
[2020-08-10 08:16] LABS: ALANINE AMINOTRANSFERASE 20 IU/L (0-55); ALBUMIN/GLOBULIN RATIO 0.8 (0.8-2.0); ALKALINE PHOSPHATASE 63 IU/L (40-150); ANION GAP 11.7 mmol/L (8-16); BLOOD UREA NITROGEN 10 mg/dL (7-26); BUN/CREATININE RATIO 14 (6-25); CALCIUM 8.4 mg/dL (8.4-10.2); CARBON DIOXIDE 25 mmol/L (22-29); CHLORIDE 106 mmol/L (98-107); CREATININE, SERUM 0.74 mg/dL (0.57-1.11); EST GLOMERULAR FILTRATION RATE > 60 ML/MIN (60-); GLUCOSE 99 mg/dL (74-118); POTASSIUM 3.7 mmol/L (3.5-5.1); SODIUM 139 mmol/L (136-145)
[2020-08-10] MEDS ORDERED: SODIUM CHLORIDE 0.9% 250ML 250 ML ONE (08:23)
[2020-08-10] MEDS: METRONIDAZOLE 500MG/NS 100ML 100 ML IV SCH (14:21)
--- NOTE | 2020-08-10 19:23 | NUR ---
Received pt in bed awake and alert. No c/o at this time, IVABX infusing with no diff. Bed in low and locked position. No s/sx of acute distress noted. Bedside report completed. Will cont to monitor patient.
[2020-08-11] VITALS: BP 107/68
[2020-08-11] MEDS: METRONIDAZOLE 500MG/NS 100ML 100 ML IV SCH (02:45)
[2020-08-11] MEDS: DOXYCYCLINE 100MG/NS 100ML 100 ML IV SCH (03:30)
[2020-08-11] MEDS: CEFOXITIN 2GM/ D5W 50ML 50 ML IV SCH ×2 (05:27)
[2020-08-11 08:42] VITALS: BP 107/68
[2020-08-11] MEDS ORDERED: DOXYCYCLINE HYCLATE TABLET 100 MG TAB PO SCH (09:00)
[2020-08-11] MEDS ORDERED: METRONIDAZOLE 500 MG TAB PO SCH (09:35)
[2020-08-11 09:38] VITALS: BP 102/61
[2020-08-11 12:00] VITALS: BP 107/49
[2020-08-11] MEDS ORDERED: DOXYCYCLINE HY100 MG PO ×2 (13:01→13:22)
[2020-08-11] MEDS ORDERED: FLAGYL250 MG PO (13:02)
[2020-08-11] MEDS ORDERED: METRONIDAZOLE500 MG PO (13:23)
--- NOTE | 2020-08-11 14:24 | NUR ---
Patient discharged home, Prescription and discharge instruction given, patient verbalized understanding, IV canula removed with tip intact, no ss of infiltration, Her mom here to pick her
== END 2020-08-11 14:24 | disposition home or self-care (01) ==
LOC: ER 08:54 → ERHOLD 19:44 → MED/SURG3 08-10 02:47
PROVIDERS: ADMIT Obstetrics & Gynecology; ATTEND Obstetrics & Gynecology
DX: N73.9 Female pelvic inflammatory disease, unspecified (principal); R10.2 Pelvic and perineal pain; E66.9 Obesity, unspecified; Z68.43 Body mass index [BMI] 50.0-59.9, adult; Z20.828 Contact with and (suspected) exposure to other viral communicable diseases
CPT/HCPCS: 36415 ×2; 74177; 76830; 76856; 80053 ×2; 81001; 81025; 85025 ×2; 87491; 87591; 93976; 99284; G0378 ×3; J0694 ×3; J7050; Q9967; U0002